=== PATIENT | female | born 1945 | race Caucasian/White ===

== ENCOUNTER 2017-02-28 08:42 | Emergency (ER) | payer MEDICARE, OTHER ==
[2017-02-28 08:53] VITALS: BP 152/70
--- NOTE | 2017-02-28 09:22 | EDM.PDOC ---
ED HPI GENERAL MEDICAL PROBLEM - General Chief Complaint: ENT Problem Stated Complaint: BLOOD SHOT EYE Time Seen by Provider: 02/28/17 08:51 Source of Information: Reports: Patient, Family History Limitations: Reports: No Limitations - History of Present Illness INITIAL COMMENTS - FREE TEXT/NARRATIVE: Patient awoke 2 days ago after lifting some heavy objects the day before and had blood in her right conjunctiva. It has spread some overnight and she has a minor ache in the right eye. No vision changes. She has had one of these before. No blood thinners or aspirin and no other complaints. Onset: Sudden Onset Date: 02/26/17 Duration: Getting Worse Location: Reports: Other (Right eye) Quality: Reports: Ache Severity: Mild Improves with: Reports: None Worsens with: Reports: None Associated Symptoms: Reports: No Other Symptoms - Related Data Allergies Allergy/AdvReac Type Severity Reaction Status Date / Time Sulfa (Sulfonamide Allergy Cannot Verified 02/28/17 08:53 Antibiotics) Remember Home Meds: Home Meds Cod Liver Oil 1 each PO DAILY 02/28/17 [History] FLUoxetine [PROzac] 20 mg PO DAILY 02/28/17 [History] Garlic 1 each PO DAILY 02/28/17 [History] Omeprazole 20 mg PO DAILY 02/28/17 [History] Past Medical History Other HEENT History: Dentures (Upper and Lower) Other OB/BYN History: parity: 2, gravity: 2, vaginal deliveries Musculoskeletal History: Reports: Arthritis, Back Pain, Chronic - Past Surgical History GI Surgical History: Reports: Colonoscopy Social & Family History - Tobacco Use Smoking Status *Q: Never Smoker Second Hand Smoke Exposure: No - Alcohol Use Days Per Week of Alcohol Use: 2 Number of Drinks Per Day: 2 Total Drinks Per Week: 4 - Recreational Drug Use Recreational Drug Use: No ED ROS ENT - Review of Systems Review Of Systems: ROS reveals no pertinent complaints other than HPI. ED EXAM, ENT - Physical Exam Exam: See Below Exam Limited By: No Limitations General Appearance: Alert, WD/WN, No Apparent Distress Eye Exam: Right Eye: Conjunctival Injection (Subconjunctival hemorrhage right eye.), Bilateral Eye: Normal Fundi, Normal Inspection Ears: Normal External Exam, Normal Canal, Hearing Grossly Normal, Normal TMs Nose: Normal Inspection, Normal Mucousa, No Blood Mouth/Throat: Normal Inspection, Normal Gums, Normal Lips, Normal Oropharynx, Normal Teeth Head: Atraumatic, Normocephalic Neck: Normal Inspection, Supple, Non-Tender, Full Range of Motion Respiratory/Chest: No Respiratory Distress, Lungs Clear, Normal Breath Sounds, No Accessory Muscle Use, Chest Non-Tender Cardiovascular: Normal Peripheral Pulses, Regular Rate, Rhythm, No Edema, No Gallop, No JVD, No Murmur, No Rub GI/Abdominal: Normal Bowel Sounds, Soft, Non-Tender, No Organomegaly, No Distention, No Abnormal Bruit, No Mass Extremities: Normal Inspection, Normal Range of Motion, Non-Tender, No Pedal Edema, Normal Capillary Refill Neurological: Alert, Oriented, CN II-XII Intact, Normal Cognition, Normal Gait, Normal Reflexes, No Motor/Sensory Deficits Psychiatric: Normal Affect, Normal Mood Skin: Warm, Dry, Intact, Normal Color, No Rash Lymphatic: No Adenopathy Course - Vital Signs Text/Narrative:: Uneventful ED course. She will use warm and cold packs for comfort to the right eye and liquid tears prn. 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 Last Recorded V/S: Last Vital Signs Temp 36.6 C 02/28/17 08:51 Pulse 63 02/28/17 08:51 Resp BP 152/70 H 02/28/17 08:51 Pulse Ox 95 02/28/17 08:51 Departure - Departure Time of Disposition: 09:30 Disposition: Home, Self-Care 01 Condition: Good Clinical Impression: Subconjunctival hemorrhage of right eye - Discharge Information Referrals: PCP,None [Primary Care Provider] - Forms: ED Department Discharge Additional Instructions: Return to the eye doctor if you are still having issues with the redness. You can use liquid tears drops for comfort, ice pack or heat pack as well.
== END 2017-02-28 09:12 | disposition home or self-care (01) ==
LOC: LB.ED 08:42
DX: H11.31 Conjunctival hemorrhage, right eye (principal); M19.90 Unspecified osteoarthritis, unspecified site; Z88.2 Allergy status to sulfonamides; Z79.899 Other long term (current) drug therapy
CPT/HCPCS: 99283